=== PATIENT | male | born 1955 | race Caucasian/White ===

== ENCOUNTER 2020-05-13 08:27 | Outpatient (CLI) | payer BC, SELFPAY ==
--- NOTE | ~2020-05-13 | MR_ITS ---
EXAMINATION: MR brain/brain stem wo/w con DATE: 05/13/2020 09:59 INDICATION: Dizziness and giddiness. New onset headache. TECHNIQUE: Magnetic resonance imaging (MRI) of the brain and brainstem was performed without and with 20 mL Multihance intravenous contrast. Sequences included sagittal and axial T1-weighted FSE, axial diffusion-weighted FS EPI, axial T2*-weighted GRE, axial T2-weighted FLAIR Propeller, axial T2-weight ed Propeller, small nzpyu-qp-lhab coronal FIESTA, small azlgy-kg-pxhy coronal T1-weighted FSE, and sm all goeod-cx-kbko axial T1-weighted SPGR. Postcontrast sequences included axial T1-weighted FSE, smal l ljqmy-em-pkxi coronal T1-weighted FSE, and small nzokz-hm-bsdg axial T1-weighted SPGR. Apparent dif fusion coefficient (ADC) maps were created. COMPARISON: 04/25/2009 FINDINGS: There are no areas of restricted diffusion to suggest acute infarction. No intracranial hemorrhage or abnormal intracranial mass lesion. Few scattered small foci of nonspecific increased T2-weighted sig nal intensity in the cerebral white matter, predominantly involving the deep and periventricular whit e matter which is within normal limits for age. There are no intraparenchymal signal abnormalities se en on the other pulse sequences. The ventricles are symmetric and normal in size. There are no abnorm al extra-axial fluid collections. Normal seventh/eighth cranial nerve complexes. No cerebellopontine angles masses. No evidence of mastoid or middle ear fluid. Flow voids are seen in the cerebral art eries on the T2-weighted sequences consistent with their expected patency. Mild mucosal thickening th roughout the paranasal sinuses. Changes of bilateral intraocular lens replacement. There are no areas of abnormal enhancement on the post contrast images. IMPRESSION: 1. A few foci of scattered nonspecific white matter T2 hyperintensity which is within normal limits f or age and likely sequela of chronic small vessel ischemic disease. 2. Otherwise normal MRI of the brain and internal auditory canals with no acute intracranial process, abnormal masses or abnormally enhancing lesions. Reviewed, dictated and finalized at location A. IMPRESSION: 1. A few foci of scattered nonspecific white matter T2 hyperintensity which is within normal limits for age and likely sequela of chronic small vessel ischemi c disease. 2. Otherwise normal MRI of the brain and internal auditory canals with no acute intracranial process, abnormal masses or abnormally enhancing lesions.
== END 2020-05-13 08:28 | disposition home or self-care (01) ==
PROVIDERS: PCP Family Medicine; Visit Provider Physician Assistant
DX: R51.9 Headache, unspecified (principal); R42 Dizziness and giddiness
CPT/HCPCS: 70553; A9577

== ENCOUNTER 2020-08-23 06:58 | Outpatient (NON) | payer MEDICARE, SELFPAY ==
[2020-08-23 22:27] LABS: SARS-CoV-2 RNA PCR Negative
== END 2020-08-23 06:59 ==
PROVIDERS: PCP Family Medicine; Visit Provider Family Medicine
DX: Z20.822 Contact with and (suspected) exposure to COVID-19 (principal)
CPT/HCPCS: C9803; U0003; U0005

== ENCOUNTER 2020-10-17 07:37 | Outpatient (CLI) | payer OTHER, SELFPAY ==
--- NOTE | ~2020-10-17 | US_ITS ---
EXAMINATION: US carotid duplex BI DATE: 10/17/2020 09:07 INDICATION: Carotid atherosclerosis presenting with dizziness. TECHNIQUE: Grayscale, color Doppler, and pulsed Doppler images of the cervical carotid arteries were obtained. The degree of vessel stenosis is placed in one of the following categories: normal, <50%, 5 0-69%, >=70% but less than near-occlusion, near-occlusion, or total occlusion. Note that percent sten osis relative to normal distal artery lumen diameter is indirectly measured from velocity measurement s as described by Mejia, et al. Radiology 2003; 229:340-346. COMPARISON: 05/23/2009 FINDINGS: RIGHT: The right common carotid artery (CCA) peak systolic velocity (PSV) is 76 cm/s. The right internal car otid artery (ICA) PSV is 74 cm/s. The right ICA end-diastolic velocity (EDV) is 12 cm/s. The right IC A/CCA PSV ratio is 1.0. Grayscale and color Doppler images yield an estimate of <50% diameter reducti on from minimal plaque in the ICA. The external carotid artery (ECA) PSV is 95 cm/s. There is antegra de flow in the right vertebral artery. LEFT: The left CCA PSV is 88 cm/s. The left ICA PSV is 60 cm/s. The left ICA EDV is 19 cm/s. The left ICA/C CA PSV ratio is 0.7. Grayscale and color Doppler images yield an estimate of <50% diameter reduction from minimal plaque in the ICA. The ECA PSV is 84 cm/s. There is antegrade flow in the left vertebral artery. IMPRESSION: 1. <50% stenosis from minimal plaque in the right internal carotid artery. 2. <50% stenosis from minimal plaque in the left internal carotid artery. Reviewed, dictated and finalized at location A.
--- NOTE | 2020-10-17 07:52 | ECHO_ITS ---
Patient Info Name: Melvin Champion Age: 65 years : 1955 Gender: Male Ht: 69 in Wt: 252 lbs BSA: 2.41 m2 HR: 93 bpm BP: 134 / 101 mmHg Technical Quality: Fair Exam Date: 10/17/2020 7:59 AM Exam Location: [facility] Patient Status: Outpatient Admit Date: 10/17/2020 Staff Ordering Physician: Geovanni Valdez MD Silo Filler: Jaguar Waddell, CALE, RT Attending Provider: Geovanni Valdez MD Referring Physician: Courtney POMPA; Exam Type: CA echo doppler color flow Study Info Indications R42 - Dizziness and giddiness Complete two-dimensional, color flow and Doppler transthoracic echocardiogram is performed. Strain analysis performed. Summary 1. Complete two-dimensional, color flow and Doppler transthoracic echocardiogram is performed. 2. Left ventricular chamber dimension is normal. 3. Left ventricular systolic function is normal, estimated at 55-60%. 4. The left ventricular diastolic function is grade I diastolic dysfunction. 5. E/e' 5 is not elevated. 6. Global longitudinal strain is abnormal at -16.0%. 7. Right ventricular systolic function is moderately reduced. 8. Right ventricular chamber dimension is severely enlarged. Left Ventricle E/e' 5 is not elevated. Global longitudinal strain is abnormal at -16.0%. Left ventricular chamber dimension is normal. Left ventricular systolic function is normal, estimated at 55-60%. The left ventricular diastolic function is grade I diastolic dysfunction. Right Ventricle Right ventricular systolic function is moderately reduced. Right ventricular chamber dimension is severely enlarged. Left Atria Left atrial chamber dimension is normal. Right Atria Right atrial chamber dimension is normal. Aortic Valve The aortic valve is probable trileaflet. There is no aortic valve stenosis. There is no aortic valve regurgitation. Pulmonic Valve There is no pulmonic regurgitation. Mitral Valve There is no mitral valve stenosis. There is no mitral valve regurgitation. Tricuspid Valve There is no tricuspid valve regurgitation. Pericardium/Pleural There is no pericardial effusion. Inferior Vena Cava Normal inferior vena cava with >50% collapse upon inspiration consistent with normal right atrial pressure, 5 mmHg. Aorta The aortic root size at the sinus of Valsalva is normal. Left Ventricular Outflow Tract Name Value Normal LVOT 2D LVOT Diameter 2.1 cm LVOT Doppler LVOT Peak Gradient 4 mmHg LVOT Mean Gradient 2 mmHg LVOT VTI 17 cm LVOT VTI/AV VTI Ratio 1.0 LVOT Stroke Volume 59 ml LVOT CO 5.0 l/min LVOT CI 2.1 l/min/m2 Mitral Valve Name Value Normal MV Doppler
== END 2020-10-17 07:38 | disposition home or self-care (01) ==
PROVIDERS: PCP Family Medicine; Visit Provider Family Medicine
DX: I95.1 Orthostatic hypotension (principal); R42 Dizziness and giddiness; I65.23 Occlusion and stenosis of bilateral carotid arteries
CPT/HCPCS: 93306; 93880

== ENCOUNTER → 2021-06-08 13:14 | Outpatient (CLI) | payer OTHER, SELFPAY ==
--- NOTE | ~2021-06-08 | XR_ITS ---
EXAMINATION: XR tibia fibula RT 2V DATE: 06/08/2021 14:04 INDICATION: Right lower leg pain. TECHNIQUE: 2 views of right tibia and fibula on 4 radiographs were obtained. COMPARISON: None. FINDINGS: Bone alignment is normal. No fracture. There is mild right knee osteoarthritis. IMPRESSION: 1. Mild right knee osteoarthritis. Reviewed, dictated and finalized at location A. 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
== END ==
PROVIDERS: Visit Provider Physician Assistant
DX: M17.11 Unilateral primary osteoarthritis, right knee (principal)
CPT/HCPCS: 73590

== ENCOUNTER → 2021-07-03 14:34 | Outpatient (CLI) | payer OTHER, SELFPAY ==
--- NOTE | ~2021-07-03 | MR_ITS ---
EXAMINATION: MR lumbar spine wo [facility] EXAM DATE: 07/03/2021 15:14 INDICATION: M54.16 - Radiculopathy, lumbar region radiculopathy. Lumbar radiculopathy. TECHNIQUE: Multi-sequential, multiplanar MR images of the lumbar spine were obtained without contrast . Sagittal T1, T2, T2 fat saturation images. Axial T2 weighted images. There is no prior study for comparison. FINDINGS: The conus medullaris terminates at the T12-L1 level and has normal signal intensity and mor phology. There is chronic L5 spondylolysis with grade 2 anterolisthesis L5 on S1, severe loss of the disc height and endplate degenerative signal change. Mild to moderate disc disease L3-4. There are no focal marrow signal abnormalities suspicious for malignancy or acute fracture. Vertebral body height s are maintained. Paraspinal soft tissue is unremarkable. Level by level evaluation: T12-L1: Disc does not extend beyond the endplate margin. Facet arthropathy: None. Neural foraminal stenosis: No stenosis. Central canal stenosis: No stenosis. L1-L2: There is a mild diffuse disc bulge. Facet arthropathy: None. Neural foraminal stenosis: No stenosis. Central canal stenosis: No stenosis. L2-L3: There is a mild diffuse disc bulge. Facet arthropathy: Moderate . Ligamentum flavum enlargement. Neural foraminal stenosis: Mild right. Central canal stenosis: No stenosis. L3-L4: There is a mild diffuse disc bulge. Facet arthropathy: Moderate. Neural foraminal stenosis: Mild bilateral. Central canal stenosis: No stenosis. L4-L5: There is a mild to moderate diffuse disc bulge. Facet arthropathy: Moderate to severe . Ligamentum flavum enlargement. Neural foraminal stenosis: Mild to moderate right. Central canal stenosis: Mild. L5-S1: There is a mild to moderate diffuse disc bulge. Facet arthropathy: Mild to moderate, partially fused. Neural foraminal stenosis: Moderate left, mild to moderate right. Central canal stenosis: No stenosis. IMPRESSION: 1. L5 bilateral chronic spondylolysis, grade 2 anterolisthesis. 2. L5-S1 moderate left neural foraminal stenosis, less at other levels. Reviewed, dictated and finalized at location A. [employer]
== END ==
PROVIDERS: PCP Family Medicine; Visit Provider Family Medicine
DX: M47.26 Other spondylosis with radiculopathy, lumbar region (principal)
CPT/HCPCS: 72148

== ENCOUNTER 2021-10-01 02:04 | Day surgery (SDC) | payer OTHER, SELFPAY ==
[2021-09-24 10:57] VITALS: BMI 36.5
--- NOTE | 2021-09-30 11:56 | WPDANESEPPF ---
Anes - Initial Pre Proc Eval Procedure: Operation Date: 10/01/21 08:00 Proposed Procedures p Screening Colonoscopy - Surinder Salazar MD Date/Time: 09/30/21 11:56 Surgeon: Surinder Salazar MD Pre Op Diagnosis: neoplasm screening Patient Data Age: 66 Gender: M Height: 1.73 m Weight: 109 kg Allergies Allergy/AdvReac Type Severity Reaction Status Date / Time No Known Allergies Allergy Mild Verified 10/01/21 06:48 Home Medications Medication Instructions Recorded Confirmed Type metformin 500 mg tablet 500 mg PO DAILY #90 tablet 10/23/20 10/01/21 Rx allopurinol 300 mg tablet 300 mg PO DAILY #90 tablet 02/23/21 10/01/21 Rx atorvastatin 10 mg tablet 10 mg PO QHS #90 tablet 02/23/21 10/01/21 Rx meclizine 25 mg tablet 25 mg PO BID PRN #60 tablet 02/23/21 10/01/21 Rx montelukast 10 mg tablet 10 mg PO DAILY #90 tablet 02/23/21 10/01/21 Rx bupropion HCl [Wellbutrin XL] 300 mg PO QAM 06/24/21 10/01/21 History esomeprazole magnesium [Nexium] 40 mg PO 3XW 06/24/21 10/01/21 History buspirone 10 mg tablet 10 mg PO BID #180 tablet 08/03/21 10/01/21 Rx levothyroxine 150 mcg PO DAILY 09/24/21 10/01/21 History olmesartan-hydrochlorothiazide 1 tablet PO DAILY 09/24/21 10/01/21 History propranolol [Inderal LA] 60 mg PO DAILY 09/24/21 10/01/21 History sumatriptan succinate [Imitrex] 100 mg PO ONCE PRN 09/24/21 10/01/21 History Patient hx anesthesia problems: none Family hx anesthesia problems: none Results Review: All pre-operative results and documents have been reviewed as part of the pre-operative evaluation. [facility] Past Medical History Medical History (Updated 09/30/21 @ 11:57 by Isidro Ricardo DO) BPV (benign positional vertigo) GERD (gastroesophageal reflux disease) Gout Hot flash in male HTN (hypertension), benign Hypogonadism in male Hypothyroid Mixed hyperlipidemia Morbid obesity with BMI of 40.0-44.9, adult Obstructive sleep apnea (adult) (pediatric) Pes anserinus bursitis of right knee Vocal cord dysfunction Family History Family History (Updated 09/09/21 @ 13:59 by Geovanni Valdez MD) Sibling Diabetes mellitus Father Cerebrovascular accident, Onset Age: 61 Hypertension Depression Mother Family history of arthritis, Onset Age: 82 Hypertension Other Family history of thyroid disorder Social History Social History Smoking status: Never smoker Alcohol intake: current Drinks per week: 1 Substance use: never Substance use type: does not use Living arrangements: with family Spiritual care concerns: No Anes - Eval Final PreProcedure Day of Procedure 09/30/21 11:56 Patient weight: obese Heart: regular rate and rhythm Lungs: clear to auscultation and normal air movement Airway: Mallampati scale class II Neurological: alert and oriented Last oral intake: >/= 8 hours ASA classification: III Emergent: no Anesthetic plan: proceed Anesthesia type and monitoring: general GIVS and standard monitoring Results Review: All pre-operative results and documents have been reviewed as part of the pre-operative evaluation. Informed Consent: The patient's anesthetic plan and its attendant risks and benefits were discussed with the patient/family/POA. Questions were solicited and answers provided to the satisfaction of the patient/family/POA.
[2021-10-01 06:40] VITALS: BP 128/73; PULSE 62; RESP 18; TEMP 36; O2SAT 96; BMI 38.9
[2021-10-01 06:49] LABS: Glucose Point of Care 101 mg/dl (65-105)
[2021-10-01] MEDS: LACTATED RINGERS 1,000 ML 150 ML IV CONT (07:00)
--- NOTE | 2021-10-01 07:19 | WPDGICN ---
Assessment and Plan Assessment and plan (1) Encounter for screening colonoscopy: Code(s): Z12.11 - Encounter for screening for malignant neoplasm of colon Status: Acute Assessment and Plan: Patient presents today for screening colonoscopy. He appears to be at average risk for colon polyps. GI Consult Note Consult date/time: 10/01/21 07:19 HPI: Melvin Champion is a 66 year old male Presents for screening colonoscopy. Patient's current weight appetite and bowel movements are normal. He denies abdominal pain. His last colonoscopy 10 or 11 years ago was unremarkable. His family history is noncontributory. Patient presents today for neoplasia screening. Review of Systems Review of Systems: All systems reviewed & are unremarkable except as noted in HPI and below PMFSH Past Medical History Medical History (Updated 10/01/21 @ 07:20 by Surinder Salazar MD) BPV (benign positional vertigo) GERD (gastroesophageal reflux disease) Gout Hot flash in male HTN (hypertension), benign Hypogonadism in male Hypothyroid Mixed hyperlipidemia Morbid obesity with BMI of 40.0-44.9, adult Obstructive sleep apnea (adult) (pediatric) Pes anserinus bursitis of right knee Vocal cord dysfunction Family History Family History (Updated 09/09/21 @ 13:59 by Geovanni Valdez MD) Sibling Diabetes mellitus Father Cerebrovascular accident, Onset Age: 61 Hypertension Depression Mother Family history of arthritis, Onset Age: 82 Hypertension Other Family history of thyroid disorder Social History Social History Smoking status: Never smoker Alcohol intake: current Drinks per week: 1 Substance use: never Substance use type: does not use Living arrangements: with family Spiritual care concerns: No Meds Home Medications and Allergies Home Medications Medication Instructions Recorded Confirmed Type metformin 500 mg tablet 500 mg PO DAILY #90 tablet 10/23/20 10/01/21 Rx allopurinol 300 mg tablet 300 mg PO DAILY #90 tablet 02/23/21 10/01/21 Rx atorvastatin 10 mg tablet 10 mg PO QHS #90 tablet 02/23/21 10/01/21 Rx meclizine 25 mg tablet 25 mg PO BID PRN #60 tablet 02/23/21 10/01/21 Rx montelukast 10 mg tablet 10 mg PO DAILY #90 tablet 02/23/21 10/01/21 Rx bupropion HCl [Wellbutrin XL] 300 mg PO QAM 06/24/21 10/01/21 History esomeprazole magnesium [Nexium] 40 mg PO 3XW 06/24/21 10/01/21 History buspirone 10 mg tablet 10 mg PO BID #180 tablet 08/03/21 10/01/21 Rx levothyroxine 150 mcg PO DAILY 09/24/21 10/01/21 History olmesartan-hydrochlorothiazide 1 tablet PO DAILY 09/24/21 10/01/21 History propranolol [Inderal LA] 60 mg PO DAILY 09/24/21 10/01/21 History sumatriptan succinate [Imitrex] 100 mg PO ONCE PRN 09/24/21 10/01/21 History Allergies Allergy/AdvReac Type Severity Reaction Status Date / Time No Known Allergies Allergy Mild Verified 10/01/21 06:48 Vital Signs Vital Signs - 24 hr 10/01/21 06:40 Temperature 96.8 F L Pulse Rate 62 Respiratory Rate 18 Blood Pressure 128/73 Pulse Oximetry 96 Exam Narrative: Physical exam reveals patient to be alert. Vital signs stable. HEENT exam is unremarkable. Patient is anicteric. Lungs are clear to auscultation and percussion. Heart is without murmur or extra sounds. Abdominal exam bowel sounds are present soft nontender with no organomegaly. Digital external rectal exam is normal.
[2021-10-01 08:17] VITALS: BP 132/73; PULSE 64; RESP 17; O2SAT 95
[2021-10-01 08:27] VITALS: BP 116/76; PULSE 60; RESP 14; O2SAT 100
[2021-10-01 08:39] VITALS: BP 125/81; PULSE 62; RESP 16; O2SAT 100
== END 2021-10-01 08:44 | disposition home or self-care (01) ==
PROVIDERS: PCP Family Medicine; Visit Provider Internal Medicine Gastroenterology
PROC: 0DJD8ZZ Inspection of Lower Intestinal Tract, Via Natural or Artificial Opening Endoscopic (ICD-10-PCS; CPT 45378; principal; 2021-10-01 08:00)
DX: Z12.11 Encounter for screening for malignant neoplasm of colon (principal); K64.8 Other hemorrhoids; K21.9 Gastro-esophageal reflux disease without esophagitis; I10 Essential (primary) hypertension; E03.9 Hypothyroidism, unspecified; E78.2 Mixed hyperlipidemia; H81.10 Benign paroxysmal vertigo, unspecified ear; G47.33 Obstructive sleep apnea (adult) (pediatric); M10.9 Gout, unspecified
CPT/HCPCS: G0121; 82948; J2704; J7120

== ENCOUNTER → 2021-12-18 07:47 | Outpatient (CLI) | payer OTHER, SELFPAY ==
--- NOTE | ~2021-12-18 | MR_ITS ---
EXAMINATION: MR knee RT wo con DATE: 12/18/2021 08:21 INDICATION: Bursitis of the right knee with anteromedial right knee pain TECHNIQUE: Magnetic resonance imaging (MRI) of the right knee was performed without intravenous contr ast. Sequences included coronal PD-weighted FSE, coronal PD-weighted FS FSE, sagittal T2-weighted FS E, sagittal PD-weighted FS FSE and axial PD weighted fat saturated FSE. COMPARISON: None. FINDINGS: Medial compartment: Complex tear extending from the anterior body near the posterior root of the medial meniscus. This in cludes a region of displaced meniscal tissue along the meniscal body which measures 1.5 cm AP. A thin flap of meniscus arising from this region extends more centrally than typical. There is partial thic kness chondral ulceration at the central weightbearing medial femoral condyle with more shallow chond ral surface irregularity along the anterior weightbearing medial femoral condyle. Additional region o f partial-thickness cartilage loss with more smooth chondral surface extending across the central to medial aspect of the medial tibial plateau. There is mild marrow edema and decreased T1 signal in the subcortical bone along the medial rim of the medial tibial plateau where there is a subtle shallow c oncavity to the articular cortex most consistent with subarticular stress/insufficiency fracture whic h is likely related to altered weight/stress distribution resulting from the meniscal tear and displa edmund meniscal flap. Lateral compartment: Lateral meniscus is normal. Articular cartilage is normal. Patellofemoral compartment: Partial-thickness chondral ulceration at the cephalad aspect of the apical ridge and medial facet wit h chondral surface regularity and loss of greater than 50% the cartilage thickness. Partial-thickness chondral fissure at the lateral patellar facet. Deep chondral fissuring along the inferior aspect of the trochlear groove and inferomedial aspect of the lateral trochlea. Ligaments and tendons: Anterior and posterior cruciate ligaments are normal. The medial collateral ligament and fibular nan ateral ligament complex are normal. Small enthesophyte at the patellar insertion of the otherwise nor mal patellar tendon. Minimal distal quadriceps tendinopathy without discrete tear. The visualized med ial and lateral hamstring tendons as well as the iliotibial band are normal. Fluid: Minimal right knee joint effusion. There is both a suprapatellar plical band as well as a medial plic al band, the latter extending minimally across the superomedial margin of the medial trochlea. No loo se osteochondral bodies identified. Multiloculated Go's cyst measuring 4.9 cm in length and 1.4 x 1.3 cm maximal transaxial dimensions, portion which extends caudally along the deep margin of the gra cilis tendon. Osseous/other: Normal marrow signal aside from the previous noted small focus of edema along the medial tibial plate au. No pathologic marrow replacing process. IMPRESSION: 1. Very small likely subarticular stress fracture on the medial margin medial tibial plateau likely r esulting from altered stress distribution resulting from a complex medial meniscal tear with displace d flap at this location. 2. Mild osteoarthritis with regions of moderate, approaching high-grade chondromalacia at both the me dial and patellofemoral compartments. 3. Moderate-sized multiloculated Go's cyst, a portion of which tracks anteroinferiorly along the d eep margin of the gracilis. Reviewed, dictated and finalized at location B. IMPRESSION: 1. Very small likely subarticular stress fracture on the medial margin medial t ibial plateau likely resulting from altered stress distribution resulting from a complex medial menis
== END ==
PROVIDERS: PCP Family Medicine; Visit Provider Orthopaedic Surgery
DX: M17.11 Unilateral primary osteoarthritis, right knee (principal); M94.261 Chondromalacia, right knee; M71.21 Synovial cyst of popliteal space [Baker], right knee
CPT/HCPCS: 73721

== ENCOUNTER 2021-12-25 14:45 | Emergency (ER) | payer OTHER, SELFPAY ==
[2021-12-25] VITALS (8 sets, daily range): BP systolic 126–164; BP diastolic 80–89; PULSE 57–71; RESP 12–17; TEMP 36.1; O2SAT 95–100
--- NOTE | ~2021-12-25 | CT_ITS ---
EXAMINATION: CTA brain carotid DATE: 12/25/2021 16:53 INDICATION: Vertigo. TECHNIQUE: Computed tomographic angiography (CTA) of the head was performed without and with 100 mL O mnipaque 300 intravenous contrast. CTA of the neck was performed with intravenous contrast. Automated exposure control and iterative reconstruction technique were employed. The dose-length product was 1 772.87 mGy-cm. Maximum intensity projection and volume rendered 3D-reconstructions were created by dionne gage technologist on a separate workstation. COMPARISON: Brain MRI 05/13/2020 FINDINGS: HEAD CTA: There is no intracranial hemorrhage, acute infarction, or abnormal intracranial mass lesion . The ventricles are normal in size. There is mild mucosal thickening in the paranasal sinuses. The m astoid air cells are normal. There are likely changes of ocular lens replacement surgeries. The verte bral arteries are codominant. There is no significant stenosis of basilar artery or the posterior cer ebral arteries. The posterior communicating arteries are normal. There is no significant stenosis of the intracranial internal carotid arteries or anterior or middle cerebral arteries. Anterior communic ating artery is normal. There is no aneurysm. NECK CTA: There are no pathologically enlarged lymph nodes. There is no significant stenosis of the v ertebral arteries. There is mild plaque in the proximal internal carotid arteries. There is 0% stenos is of the proximal right internal carotid artery relative to normal distal artery lumen diameter (IGOR CET criteria). There is 0% stenosis of the proximal left internal carotid artery relative to normal d istal artery lumen diameter. There is severe cervical spondylosis. IMPRESSION: 1. Normal brain. No aneurysm or significant intracranial arterial stenosis. 2. 0% stenosis of the proximal internal carotid arteries relative to normal distal artery lumen diame ters (NASCET criteria). Reviewed, dictated and finalized at location A. IMPRESSION: 1. Normal brain. No aneurysm or significant intracranial arterial stenosis. 2. 0% stenosis of the proximal internal carotid arteries relative to normal dis thelma artery lumen diameters (NASCET criteria).
--- NOTE | 2021-12-25 14:59 | ECG_ITS ---
Measurements Intervals [place] Rate: 54 P: 53 VT: 200 QRS: 6 QRSD: 98 T: 41 QT: 413 QTc: 395 Interpretive Statements SINUS BRADYCARDIA BASELINE ARTIFACT MINIMAL VOLTAGE CRITERIA FOR LVH, CONSIDER NORMAL VARIANT [MEETS CRITERIA IN ONE OF: R(aVL), S(V1), R(V5), R(V5/V6)+S(V1)] BORDERLINE ECG NO PREVIOUS ECG AVAILABLE FOR COMPARISON Electronically Signed On 12-25-2021 17:23:12 CDT by Pablo Fink M.D.
[2021-12-25 15:30] LABS: Basophils Absolute Auto 0.1 K/mm3 (0.0-0.1); Basophils Percent Auto 0.6 % (0.2-1.2); Eosinophils Absolute Auto 0.3 K/mm3 (0-0.3); Eosinophils Percent Auto 2.8 % (0-4.4); Hematocrit 43.9 % (42.0-52.0); Hemoglobin 14.9 g/dL (14.0-18.0); Immature Granulocyte Absolute 0.06 K/mm3 (0.00-0.031); Immature Granulocyte Percent A 0.5 % (0-0.5); Lymphocytes Absolute Auto 2.78 K/mm3 (0.9-3.2); Lymphocytes Percent Auto 24.8 % (18.3-44.2); Mean Corpuscular HGB Conc 33.9 g/dl (32-36); Mean Corpuscular Volume 91.3 fl (80-100); Monocytes Absolute Auto 1.1 K/mm3 (0.1-0.6); Monocytes Percent Auto 10.2 % (2.6-8.5); Neutrophils Absolute Auto 6.8 K/mm3 (1.3-6.7); Neutrophils Percent Auto 61.1 % (45.5-73.1); Platelet Count Result 278 k/mm3 (150-375); Red Blood Count 4.81 M/mm3 (4.6-6.20); Red Cell Distribution Width 13.3 % (11.5-14.5); White Blood Count 11.2 K/mm3 (4.5-10.0)
[2021-12-25 15:50] LABS: Alanine Aminotransferase 28 U/L (6-50); Albumin Level 4.5 g/dL (3.5-5.1); Alkaline Phosphatase 65 U/L (38-126); Anion Gap 7 mmol/L (8-16); Aspartate Amino Transferase 27 U/L (17-59); Bilirubin,Total 0.8 mg/dL (0.2-1.3); Blood Urea Nitrogen 25 mg/dL (9-20); Calcium 8.8 mg/dL (8.4-10.2); Carbon Dioxide 27 mmol/L (22-30); Chloride 101 mmol/L (98-107); Estimated CRCL calculation 57 ml/min; Estimated Glomerular Filt Rate 50; Glucose 112 mg/dL (65-110); Potassium 3.8 mmol/L (3.4-5.0); Sodium 135 mmol/L (137-145)
[2021-12-25] MEDS: MECLIZINE HCL 25 MG TABLET PO (16:29)
[2021-12-25] MEDS: SODIUM CHLORIDE 0.9% IV 1,000 ML 999 ML IV CONT (16:36)
--- NOTE | 2021-12-25 17:39 | ED.DIZZY ---
HPI - Dizziness General Chief Complaint: Dizziness Stated Complaint: SUDDEN ONSET VERTIGO Time Seen by Provider: 12/25/21 15:58 Source: patient History of Present Illness HPI Narrative: Patient presents with dizziness. Scribes dizziness is a sensation of feeling off balance. He was visiting his relatives in the ICU was getting extubated today when he had sudden onset of his symptoms. He took his meclizine and it helped a little but did not make his symptoms resolved so he was concerned so he came to the ER for further evaluation. Patient notes a history of the same is currently seeing neurology and ENT for further evaluation of his symptoms. He takes meclizine as needed for the symptoms. Today's episode was associated with nausea and vomiting per his usual routine he denies any chest pain shortness of breath lightheadedness dizziness urine or diarrhea. Related Data Home Medications Medication Instructions Recorded Confirmed esomeprazole magnesium 40 mg 40 mg PO 3XW 06/24/21 10/01/21 capsule,delayed release (Nexium) olmesartan 40 1 tablet PO DAILY 09/24/21 10/01/21 mg-hydrochlorothiazide 25 mg tablet propranolol 60 mg capsule,24 60 mg PO DAILY 09/24/21 10/01/21 hr,extended release (Inderal LA) Allergies Allergy/AdvReac Type Severity Reaction Status Date / Time No Known Allergies Allergy Mild Verified 12/22/21 10:48 Review of Systems Review of Systems: CONSTITUTIONAL: Denies fever, chills, or sweats. EYES: Denies visual changes, redness, or discharge. ENT: Denies rhinorrhea, congestion, sore throat, or otalgia. CARDIOVASCULAR: Denies chest pain, palpitations, or edema. RESPIRATORY: Denies cough or dyspnea. GASTROINTESTINAL: Denies abdominal pain, or diarrhea. GENITOURINARY: Denies dysuria or hematuria. SKIN: Denies rash or itching. MUSCULOSKELETAL: Denies back pain, joint pain, or myalgia. NEUROLOGIC: Denies headache, numbness, or weakness. PSYCHIATRIC: Denies anxiety or depression. All systems reviewed & are unremarkable except as noted in HPI and below PMFSH Past Medical History Medical History BPV (benign positional vertigo) GERD (gastroesophageal reflux disease) Gout Hot flash in male HTN (hypertension), benign Hypogonadism in male Hypothyroid Mixed hyperlipidemia Morbid obesity with BMI of 40.0-44.9, adult Obstructive sleep apnea (adult) (pediatric) Pes anserinus bursitis of right knee Tear of medial meniscus of right knee, current Vocal cord dysfunction Family History Family History Sibling Diabetes mellitus Father Cerebrovascular accident, Onset Age: 61 Hypertension Depression Mother Family history of arthritis, Onset Age: 82 Hypertension Other Family history of thyroid disorder Social History Social History Smoking status: Never smoker Alcohol intake: current Drinks per week: 1 Substance use: never Substance use type: does not use Spiritual care concerns: No Exam Narrative: GENERAL: Well-appearing, well-nourished, and in no acute distress. HEAD: Normocephalic, atraumatic. EYES: PERRLA and EOMI. ENT: Nares clear, no rhinorrhea or epistaxis. Mucous membranes moist. NECK: Supple. No masses. No JVD CHEST: Clear to auscultation. No respiratory distress. No wheezes rales or rhonchi HEART: Regular rate and rhythm. No murmur heard. Normal peripheral pulses. ABDOMEN: Soft, nontender, nondistended, normal active bowel sounds. EXTREMITIES: Normal range of motion. No edema. SKIN: Warm, dry, no rash. NEURO: Cranial nerves II through XII are intact patient is 5 out of 5 strength all extremities sensation intact light touch in all extremities no dysdiadochokinesia no dysmetria with finger-nose alert and oriented x3. PSYCH: Normal mood and affect. Course Reevaluation(s) Reevaluation #1: Resu
== END 2021-12-25 18:10 | disposition home or self-care (01) ==
PROVIDERS: Emergency Medicine; Emergency Provider Emergency Medicine; PCP Family Medicine
DX: R42 Dizziness and giddiness (principal); I10 Essential (primary) hypertension; E03.9 Hypothyroidism, unspecified
CPT/HCPCS: 36415; 70496; 70498; 80053; 85025; 93005; 96360; 99284; A9270; J7030; Q9967